=== PATIENT | male | born 1995 | race Caucasian/White ===

== ENCOUNTER 2018-09-19 11:07 | Inpatient (IN) ==
[2018-09-19] MEDS ORDERED: LIBRIUM PO PRN (11:55)
[2018-09-19] MEDS ORDERED: MOTRIN PO PRN (11:55)
[2018-09-19] MEDS ORDERED: TUBERSOL ID ONE (11:55)
[2018-09-19] MEDS ORDERED: BENTYL PO PRN (11:55)
[2018-09-19] MEDS ORDERED: ZOFRAN IV PRN (11:55)
[2018-09-19] MEDS ORDERED: D5W 1,000 ML IV PRN (11:55)
[2018-09-19] MEDS ORDERED: SINEMET 25/100 PO PRN (11:55)
[2018-09-19] MEDS ORDERED: MAALOX PLUS LIQUID PO PRN (11:55)
[2018-09-19] MEDS ORDERED: DESYREL PO PRN (11:55)
[2018-09-19] MEDS ORDERED: DULCOLAX PR PRN (11:55)
[2018-09-19] MEDS ORDERED: ZOFRAN ODT PO PRN (11:55)
[2018-09-19] MEDS ORDERED: ATARAX PO PRN (11:55)
[2018-09-19] MEDS ORDERED: PHENOBARBITAL IV PRN (11:55)
[2018-09-19] MEDS ORDERED: IMODIUM PO PRN (11:55)
[2018-09-19 13:04] LABS: HEMATOCRIT 47.9 % (42.0-52.0); HEMOGLOBIN 17.1 g/dL (14.0-18.0); MCH 30.9 PG (27-31); MCHC 35.7 g/dL (33-37); MCV 86.6 FL (81-99); MPV 9.8 FL (7.4-10.4); RBC 5.53 XMIL (4.7-6.1); RDW 12.4 % (11.5-14.5); WBC 8.99 X1000 (4.8-10.8)
[2018-09-19 13:21] LABS: AMYLASE 61 U/L (20-200); LIPASE 23 U/L (13-60)
[2018-09-19 13:22] LABS: URINE SOURCE CLEAN CATCH
[2018-09-19 13:23] LABS: AGAP 9; ALBUMIN 4.2 g/dL (3.5-5.0); ALKALINE PHOSPHATASE 90 U/L (32-122); BUN 10 mg/dL (8-22); CALCIUM 9.2 mg/dL (8.8-10.2); CHLORIDE 104 mmol/L (98-107); COSMO 276; CREATININE 0.6 mg/dL (0.7-1.2); ESTIMATED GFR > 60; GLUCOSE 84 mg/dL (70-104); GOT 83 U/L (10-34); GPT 119 U/L (10-44); POTASSIUM 4.4 mmol/L (3.5-5.1); SODIUM 139 mmol/L (136-145); TCO2 26 mmol/L (25-35)
[2018-09-19 13:26] LABS: INR 0.92; PROTIME 12.8 Seconds (11.0-16.0)
[2018-09-19 13:33] LABS: BILIRUBIN URINE NEGATIVE (NEGATIVE); BLOOD URINE NEGATIVE (NEGATIVE); CLARITY CLEAR (CLEAR); COLOR YELLOW; GLUCOSE URINE NEGATIVE (NEGATIVE); KETONE URINE TRACE mg/dL (NEGATIVE); LEUKOCYTES URINE TRACE (NEGATIVE); NITRITE URINE NEGATIVE (NEGATIVE); PH URINE 6.5; PROTEIN URINE TRACE mg/dL (NEGATIVE); UROBILINOGEN URINE 8 mg/dL
[2018-09-19 13:34] LABS: UR AMPHETAMINES QUAL PRESUMPTIVE POSITIVE (NONE DETECT); UR BARBITUATES QUAL NONE DETECTED (NONE DETECT); UR BENZODIAZEPIN QUAL PRESUMPTIVE POSITIVE (NONE DETECT); UR CANNABINOIDS QUAL PRESUMPTIVE POSITIVE (NONE DETECT); UR COCAINE QUAL NONE DETECTED (NONE DETECT); UR METHADONE QUAL NONE DETECTED (NONE DETECT); UR METHAMPHETAMINE QUAL NONE DETECTED (NONE DETECT); UR OPIATES QUAL NONE DETECTED (NONE DETECT); UR OXYCODONE QUAL NONE DETECTED (NONE DETECT); UR PCP QUAL NONE DETECTED (NONE DETECT); UR PROPOXYPHENE QUAL NONE DETECTED (NONE DETECT); UR TCA QUAL NONE DETECTED (NONE DETECT)
[2018-09-19 13:38] LABS: URINE BACTERIA 1+ /HFP; URINE CAST NONE SEEN /LPF; URINE EPITHELIAL CELLS <10 /HPF (<10); URINE RBC <10 /HPF (<10); URINE WBC <10 /HPF (<10); URINE YEAST NONE SEEN /HPF
[2018-09-19 13:39] LABS: URINE CRYSTAL CA OXALATE PRESENT /HPF
[2018-09-19] MEDS: LIBRIUM PO SCH ×2 (15:06→18:28)
[2018-09-19] MEDS: NICODERM PATCH TD PRN (17:11)
[2018-09-20] MEDS: LIBRIUM PO SCH ×4 (03:29→20:14)
[2018-09-20] MEDS: PROTONIX PO SCH (06:53)
[2018-09-20] MEDS ORDERED: SUBOXONE 2 MG/0.5 MG FILM SL ONE (09:15)
[2018-09-20] MEDS: THERA M PLUS PO SCH (10:05)
[2018-09-20] MEDS: FOLIC ACID PO SCH (10:06)
[2018-09-20] MEDS: VITAMIN B-1 PO SCH (10:06)
[2018-09-20] MEDS: SUBOXONE 2 MG/0.5 MG FILM SL SCH ×2 (10:45→20:14)
--- NOTE | 2018-09-20 18:28 | PROGRESS NOTE ---
DATE: 09/20/2018 SUBJECTIVE: The patient notes that he is feeling a lot better today than he was yesterday. Denies any fevers or chills currently. OBJECTIVE: Vital signs reviewed. He is awake, alert. He is in no respiratory distress. Blood pressure is stable. Respiratory rate 20. He is afebrile. HEENT: Normocephalic. Neck supple. CV: Regular rate. Chest clear. Abdomen soft. Extremities: Moves all extremities. ASSESSMENT: 1. Nausea and vomiting. 2. Abdominal pain. 3. Myalgias. 4. Paresthesias. 5. Paroxysmal sweating. 6. Opiate abuse, withdrawal and stabilization. PLAN: Continue the patient in the hospital. Continue symptomatic treatment. Continue counseling. Further orders as needed. cc: Aaron Salas MD
--- NOTE | 2018-09-20 19:30 | HISTORY AND PHYSICAL ---
CHIEF COMPLAINT: Nausea, vomiting. HISTORY OF PRESENT ILLNESS: The patient is a 22-year-old male who presented to [facility], secondary to nausea, vomiting, abdominal pain, myalgias, paresthesias. SOCIAL HISTORY: Patient is . He is unemployed. Lives at home in [place]. PAST MEDICAL HISTORY: Significant for chronic anxiety, depression, since age 8 or 9. MEDICATIONS: He is on no current prescription medications. ALLERGIES: No known drug allergies. REVIEW OF SYSTEMS: CINA score is 10 secondary to nausea, vomiting, myalgias, frequent changes in temperature. Denies any fevers. Denies dysuria, urinary frequency, urgency. Denies constipation, melena, hematochezia. Denies any headaches, blurred vision, change in vision, focalized numbness, tingling, weakness. SUBSTANCE ABUSE HISTORY: The patient notes he is in court ordered detox. He has to go to residential upon discharge. He has been in [facility] in [place] in 2016. He was in a alf, [facility] for 5 months in 2016. In 2017 he was back for 3 months in alf, [facility], and in March 2018, he was at [facility] until he was kicked out. Started marijuana at age 13, currently smokes 1 to 2 times a month, started Valium at age 16, currently is taking 2 to 4 mg Valium tablets. Started stimulants at age 21, currently using 1 to 2 g of meth IV daily. Started opiates at age 22. Has been using heroin IV daily. Has been using Suboxone as well. Started nicotine at age 16. Currently taking half a day. FAMILY HISTORY: Noncontributory. PHYSICAL: General: He is in no current respiratory distress. HEENT: Normocephalic. Neck: Supple. CARDIOVASCULAR: Regular rate. Chest: Clear. Abdomen: Soft. Extremities: Moves all extremities. Neurologic: No focal changes. Skin: Warm and dry, no rashes. ASSESSMENT: 1. Nausea and vomiting. 2. Abdominal pain. 3. Myalgias. 4. Polysubstance use and abuse. PLAN: We will admit patient to the hospital. Placed on Librium taper. Continue to follow. Continue counseling. Further orders as needed. cc: Aaron Salas MD
[2018-09-20] MEDS: NICODERM PATCH TD PRN (20:18)
[2018-09-20] MEDS: SENOKOT PO PRN (22:34)
[2018-09-21] MEDS: LIBRIUM PO SCH ×3 (04:19→22:03)
[2018-09-21] MEDS: PROTONIX PO SCH (06:03)
[2018-09-21] MEDS: TYLENOL PO PRN (09:15)
[2018-09-21] MEDS: FOLIC ACID PO SCH (09:15)
[2018-09-21] MEDS: SUBOXONE 2 MG/0.5 MG FILM SL SCH ×2 (09:15→22:03)
[2018-09-21] MEDS: THERA M PLUS PO SCH (09:15)
[2018-09-21] MEDS: VITAMIN B-1 PO SCH (09:15)
[2018-09-21] MEDS ORDERED: SUBOXONE 2 MG/0.5 MG FILM SL ONE (09:26)
--- NOTE | 2018-09-21 10:35 | PROGRESS NOTE ---
DATE: 09/21/2018 SUBJECTIVE: The patient notes he overall still feels terrible, although not quite as bad as he did, still having lots of muscle aches. Denies any fevers or chills. Denies any GI or issues currently. PHYSICAL EXAMINATION: Vital Signs: Reviewed. General: He is awake, alert. He is in no distress. HEENT: Normocephalic. Neck: Supple. CARDIOVASCULAR: Regular rate. Chest: Clear. Abdomen: Soft. Extremities: Moves all extremities. ASSESSMENT: 1. Nausea and vomiting. 2. Abdominal pain. 3. Myalgias. 4. Paresthesias. 5. Polysubstance abuse and withdrawal. PLAN: We will continue the patient in the hospital. We will continue Suboxone, we will use 4 mg this morning and attempt to wean to 2 mg tonight. Continue Librium and taper that as well for his benzodiazepines. Continue counseling. Hopefully can discharge to further inpatient rehab early in the week. cc: Aaron Salas MD
[2018-09-21] MEDS: NICODERM PATCH TD PRN (22:03)
[2018-09-21] MEDS: SENOKOT PO PRN (22:32)
[2018-09-22] MEDS: ROBAXIN PO PRN (04:30)
[2018-09-22] MEDS: LIBRIUM PO SCH (04:30)
[2018-09-22] MEDS: PROTONIX PO SCH (06:52)
[2018-09-22] MEDS: SUBOXONE 2 MG/0.5 MG FILM SL SCH (09:42)
[2018-09-22] MEDS: THERA M PLUS PO SCH (09:42)
[2018-09-22] MEDS: VITAMIN B-1 PO SCH (09:42)
[2018-09-22] MEDS: FOLIC ACID PO SCH (09:42)
--- NOTE | 2018-09-22 13:59 | PROGRESS NOTE ---
DATE: 09/22/2018 SUBJECTIVE: Patient notes he is having some difficulty urinating. Notes that his urine is dark and cloudy. Denies any fevers or chills. Denies any constipation, melena, or hematochezia. PHYSICAL EXAMINATION: Vital Signs: Reviewed. General: He is awake, alert. He is in no distress. HEENT: Normocephalic. Neck: Supple. Cardiovascular: Regular rate. Chest: Clear. Abdomen: Soft. Extremities: Moves all extremities. Neurologic: No changes. ASSESSMENT: 1. Dysuria. 2. Myalgias. 3. Paresthesias. 4. Polysubstance use and abuse. PLAN: We will continue to wean Librium to twice daily and we will decrease buprenorphine to 1 mg twice daily. We will continue counseling. Check urine culture. Place him on antibiotics for a presumptive urinary infection and we will follow. cc: Aaron Salas MD
[2018-09-22] MEDS: ROCEPHIN 1 GM in NS 50 ML IV SCH (14:24)
[2018-09-22] MEDS: NS 1,000 ML IV SCH (14:24)
[2018-09-22 17:42] LABS: URINE SOURCE CLEAN CATCH
[2018-09-22 18:47] LABS: BILIRUBIN URINE NEGATIVE (NEGATIVE); BLOOD URINE NEGATIVE (NEGATIVE); CLARITY CLEAR (CLEAR); COLOR YELLOW; GLUCOSE URINE NEGATIVE (NEGATIVE); KETONE URINE TRACE mg/dL (NEGATIVE); LEUKOCYTES URINE NEGATIVE (NEGATIVE); NITRITE URINE NEGATIVE (NEGATIVE); PROTEIN URINE TRACE mg/dL (NEGATIVE); UROBILINOGEN URINE NORMAL
[2018-09-22 18:51] LABS: URINE BACTERIA 1+ /HFP; URINE EPITHELIAL CELLS <10 /HPF (<10); URINE WBC <10 /HPF (<10); URINE YEAST NONE SEEN /HPF
[2018-09-22 18:52] LABS: URINE CAST NONE SEEN /LPF; URINE CRYSTAL CA OXALATE PRESENT /HPF
[2018-09-22] MEDS: NICODERM PATCH TD PRN (20:40)
[2018-09-22] MEDS ORDERED: LIBRIUM PO SCH (21:00)
[2018-09-22] MEDS ORDERED: SUBUTEX SL SCH (21:00)
[2018-09-23] MEDS: SEROQUEL PO PRN ×2 (00:41→21:53)
[2018-09-23] MEDS: NS 1,000 ML IV SCH ×3 (05:12→17:15)
[2018-09-23] MEDS: TYLENOL PO PRN (06:14)
[2018-09-23] MEDS: PROTONIX PO SCH (06:14)
[2018-09-23] MEDS: SUBUTEX SL SCH (09:08)
[2018-09-23] MEDS: LIBRIUM PO SCH (09:09)
[2018-09-23] MEDS: FOLIC ACID PO SCH (09:09)
[2018-09-23] MEDS: THERA M PLUS PO SCH (09:09)
[2018-09-23] MEDS: VITAMIN B-1 PO SCH (09:09)
[2018-09-23] MEDS: ROCEPHIN 1 GM in NS 50 ML IV SCH (12:32)
[2018-09-23] MEDS: ROBAXIN PO PRN (21:54)
[2018-09-23] MEDS: NICODERM PATCH TD PRN (21:55)
--- NOTE | 2018-09-23 22:40 | PROGRESS NOTE ---
DATE: 09/23/2018 SUBJECTIVE: Patient notes overall he is starting to feel a little bit better. Did have a low- grade fever earlier. Denies any current fevers. Denies cough, congestion, headache. PHYSICAL: Vital Signs: T-max 100.8, pulse 122, BP 137/89. General: Patient is awake, alert, pleasant to talk with. He is in no current distress. Notes that the 1 mg Subutex helped him better than the Suboxone (which was actually 4 mg). ASSESSMENT: 1. Dysuria. 2. Myalgias. 3. Paresthesias. 4. Polysubstance use and abuse. PLAN: Overall, patient has improved. We will continue to wean Librium to 1 daily. Continue to wean Subutex. At this point, we will cut in half at 1 mg twice daily. Hopefully, patient can transition to further rehab upon discharge. He will be ready for discharge over the next day or 2. Continue to discuss with patient the importance of avoidance of triggers. cc: Aaron Salas MD
[2018-09-24] MEDS: PROTONIX PO SCH (06:57)
[2018-09-24 07:55] VITALS: BP 142/78
[2018-09-24] MEDS: LIBRIUM PO SCH (09:35)
[2018-09-24] MEDS: THERA M PLUS PO SCH (09:35)
[2018-09-24] MEDS: SUBUTEX SL SCH (09:35)
[2018-09-24] MEDS: FOLIC ACID PO SCH (09:35)
[2018-09-24] MEDS: VITAMIN B-1 PO SCH (09:35)
== END 2018-09-24 09:50 | disposition home or self-care (01) | DRG 897 ==
LOC: P.MEDSURG 11:28
PROVIDERS: ADMIT Family Medicine; ATTEND Family Medicine
CPT/HCPCS: 80053; 80104; 80301; 80305; 80307; 80320; 81001; 82055; 82150; 83690; 85027; 85610; 87088; A9270; G0431; G0434; G0477; G0480; G6040; J0696; J7030